=== PATIENT | male | born 1935 | race Caucasian/White ===

== ENCOUNTER 2022-05-10 00:02 | Inpatient (IN) | payer MEDICARE, BC ==
[2022-05-10 00:45] LABS: #Eosinphils 0.1 10x3/uL (0.0-0.5); #Neutrophils 8.2 10x3/uL (1.5-8.4); %Basophils 0.4 % (0.0-2.0); %Eosinophils 0.8 % (0.0-6.0); %Lymphocytes 10.3 % (18.0-47.0); %Monocytes 9.5 % (0.0-10.0); %Neutrophils 78.4 % (40.0-75.0); Hemoglobin 12.3 g/dL (13.5-17.5); Mean Corpuscular HGB CONC 34.2 g/dL (32.0-36.0); Mean Corpuscular Hemoglobin 32.3 pg (27.0-33.0); Mean Corpuscular Volume 94.5 fl (81.2-95.1); Mean Platelet Volume 10.6 fl (7.4-10.4); Platelet Count 260 10x3/uL (150-450); RBC Distribution Width 13.3 % (11.5-14.5); Red Blood Cell (RBC) Count 3.81 10x6/uL (4.32-5.72); White Blood Cell (WBC) Count 10.4 10x3/uL (3.5-10.5)
[2022-05-10 00:53] LABS: ALT (SGPT) 29 U/L (8-55); AST (SGOT) 25 U/L (5-34); Albumin 3.9 g/dL (3.4-4.8); Alkaline Phosphatase 48 U/L (40-110); Anion Gap 15 mmol/L (10-20); BUN (Urea Nitrogen) 17 mg/dL (8.4-25.7); Bilirubin, Total 0.9 mg/dL (0.2-1.2); Calc. Creatinine Clearance 0 mL/min (70-130); Calcium 9.2 mg/dL (7.8-10.44); Carbon Dioxide 23 mmol/L (23-31); Chloride 105 mmol/L (98-107); Estimated GFR 62; Globulin 2.6 g/dL (2.4-3.5); Glucose 125 mg/dL (83-110); Potassium 4.4 mmol/L (3.5-5.1); Protein, Total 6.5 g/dL (5.8-8.1); Sodium 139 mmol/L (136-145)
[2022-05-10] MEDS ORDERED: Aspirin 325 MG TAB ONE ×2 (01:19→09:46)
[2022-05-10] MEDS ORDERED: Furosemide 40 MG/4 ML VIAL ONE ×2 (01:19→14:24)
[2022-05-10 01:38] LABS: CKMB 8.5 ng/mL (0-6.6)
[2022-05-10] MEDS ORDERED: Enoxaparin Sodium 60 MG/0.6 ML SYRINGE ONE (01:54)
[2022-05-10] MEDS ORDERED: Acetaminophen 325 MG TAB PO PRN (01:59)
[2022-05-10] MEDS ORDERED: Ondansetron PF 4 MG/2 ML Vial IVP PRN (01:59)
[2022-05-10 02:29] LABS: SARS-CoV-2 NAA Rapid Test DETECTED (NotDetected)
[2022-05-10 03:57] LABS: #Eosinphils 0.1 10x3/uL (0.0-0.5); %Basophils 0.4 % (0.0-2.0); %Eosinophils 1.2 % (0.0-6.0); %Lymphocytes 8.2 % (18.0-47.0); %Monocytes 9.9 % (0.0-10.0); %Neutrophils 79.9 % (40.0-75.0); Hemoglobin 11.6 g/dL (13.5-17.5); Mean Corpuscular HGB CONC 33.8 g/dL (32.0-36.0); Mean Corpuscular Hemoglobin 31.8 pg (27.0-33.0); Mean Platelet Volume 10.8 fl (7.4-10.4); Platelet Count 266 10x3/uL (150-450); RBC Distribution Width 12.9 % (11.5-14.5); Red Blood Cell (RBC) Count 3.65 10x6/uL (4.32-5.72)
[2022-05-10 04:18] LABS: Anion Gap 15 mmol/L (10-20); BUN (Urea Nitrogen) 16 mg/dL (8.4-25.7); Calc. Creatinine Clearance 0 mL/min (70-130); Calcium 8.9 mg/dL (7.8-10.44); Carbon Dioxide 25 mmol/L (23-31); Cardiac Risk 3.6 (Less than 4.5); Chloride 103 mmol/L (98-107); Cholesterol 139 mg/dl (< 200 Desired); Estimated GFR 67; Glucose 109 mg/dL (83-110); HDL Cholesterol 39 mg/dL (>60 Neg Risk); LDL Cholesterol, Calculated 86 mg/dL; Potassium 3.9 mmol/L (3.5-5.1); Sodium 139 mmol/L (136-145); Triglycerides 68 mg/dL (Less than 150)
[2022-05-10] MEDS: Levothyroxine Sodium 75 MCG TAB PO SCH (05:52)
[2022-05-10 07:18] LABS: Critical Call Chem Troponin I RESULT DECREASING
[2022-05-10 07:35] LABS: CKMB 5.9 ng/mL (0-6.6)
[2022-05-10] MEDS: Tamsulosin HCl 0.4 MG CAP PO SCH (09:00)
[2022-05-10] MEDS: Aspirin Chewable 81 MG TAB PO SCH (09:00)
[2022-05-10] MEDS: Zinc Sulfate 220 MG CAP PO SCH (09:00)
[2022-05-10] MEDS: Sacubitril 49 MG/Valsartan 51 MG TABLET PO SCH ×2 (09:00→22:00)
[2022-05-10] MEDS: Ascorbic Acid 500 mg Chewable Tablet PO SCH (09:00)
[2022-05-10] MEDS ORDERED: Aspirin 81 mg Enteric Coated Tablet PO SCH (09:00)
[2022-05-10] MEDS ORDERED: Tamsulosin HCl 0.4 MG CAP ONE (09:49)
[2022-05-10] MEDS: Furosemide 40 MG/4 ML VIAL SLOW IVP SCH (14:40)
[2022-05-10] MEDS ORDERED: Iopamidol 370 76% 100 ML VIAL ONE (14:46)
[2022-05-10] MEDS: Carvedilol 3.125 MG TAB PO SCH (17:13)
[2022-05-10 17:31] VITALS: BMI 21.3
[2022-05-10] MEDS: Atorvastatin Calcium 40 MG TAB PO SCH (22:00)
[2022-05-11] MEDS ORDERED: Benzonatate 100 MG CAP PO PRN (02:19)
[2022-05-11 04:18] LABS: Anion Gap 16 mmol/L (10-20); BUN (Urea Nitrogen) 18 mg/dL (8.4-25.7); Calc. Creatinine Clearance 46 mL/min (70-130); Calcium 9.2 mg/dL (7.8-10.44); Carbon Dioxide 24 mmol/L (23-31); Chloride 104 mmol/L (98-107); Estimated GFR 77; Glucose 120 mg/dL (83-110); Sodium 140 mmol/L (136-145)
[2022-05-11 04:21] LABS: Potassium 4.1 mmol/L (3.5-5.1)
[2022-05-11] MEDS ORDERED: Levothyroxine Sodium 75 MCG TAB PO SCH (06:00)
[2022-05-11] MEDS: Furosemide 40 MG/4 ML VIAL SLOW IVP SCH (06:05)
[2022-05-11] MEDS: Levothyroxine Sodium 75 MCG TAB PO SCH (06:06)
[2022-05-11] MEDS: Ascorbic Acid 500 mg Chewable Tablet PO SCH (08:41)
[2022-05-11] MEDS: Zinc Sulfate 220 MG CAP PO SCH (08:41)
[2022-05-11] MEDS: Tamsulosin HCl 0.4 MG CAP PO SCH ×2 (08:41→08:42)
[2022-05-11] MEDS: Enoxaparin Sodium 40 MG/0.4 ML SYRINGE SC SCH (08:41)
[2022-05-11] MEDS: Finasteride 5 MG TAB PO SCH (08:42)
[2022-05-11] MEDS: Aspirin Chewable 81 MG TAB PO SCH (08:42)
[2022-05-11] MEDS: Carvedilol 3.125 MG TAB PO SCH ×2 (08:42→16:49)
[2022-05-11] MEDS ORDERED: OMEPRAZOLE 20 MG PO SCH (09:00)
[2022-05-11] MEDS: Sacubitril 49 MG/Valsartan 51 MG TABLET PO SCH ×2 (09:41→21:21)
[2022-05-11] MEDS: Furosemide 40 MG TAB PO SCH (13:52)
[2022-05-11] MEDS: Atorvastatin Calcium 40 MG TAB PO SCH (21:21)
[2022-05-12 04:55] LABS: Anion Gap 16 mmol/L (10-20); BUN (Urea Nitrogen) 27 mg/dL (8.4-25.7); Calc. Creatinine Clearance 39 mL/min (70-130); Carbon Dioxide 23 mmol/L (23-31); Chloride 105 mmol/L (98-107); Estimated GFR 65; Glucose 113 mg/dL (83-110); Potassium 3.6 mmol/L (3.5-5.1); Sodium 140 mmol/L (136-145)
[2022-05-12] MEDS: Levothyroxine Sodium 75 MCG TAB PO SCH (05:39)
[2022-05-12] MEDS: Ascorbic Acid 500 mg Chewable Tablet PO SCH (09:17)
[2022-05-12] MEDS: Finasteride 5 MG TAB PO SCH (09:17)
[2022-05-12] MEDS: Enoxaparin Sodium 40 MG/0.4 ML SYRINGE SC SCH (09:17)
[2022-05-12] MEDS: Furosemide 40 MG TAB PO SCH ×2 (09:17→13:59)
[2022-05-12] MEDS: Tamsulosin HCl 0.4 MG CAP PO SCH ×2 (09:18→09:19)
[2022-05-12] MEDS: Carvedilol 3.125 MG TAB PO SCH (09:18)
[2022-05-12] MEDS: Aspirin Chewable 81 MG TAB PO SCH (09:18)
[2022-05-12] MEDS: Zinc Sulfate 220 MG CAP PO SCH (09:18)
[2022-05-12] MEDS: Sacubitril 49 MG/Valsartan 51 MG TABLET PO SCH (09:19)
[2022-05-12 11:48] VITALS: BP 110/56; TEMP 98.2
== END 2022-05-12 17:21 | disposition home health service (06) | DRG 280 ==
LOC: CSHERS 00:02 → CSHERHOLD 01:59 → CSHTELE 15:57
PROVIDERS: ADMIT Family Medicine; ATTEND Internal Medicine
PROC: 8E0ZXY6 Isolation (ICD-10-PCS; principal; 2022-05-10)
DX: I11.0 Hypertensive heart disease with heart failure (principal); I21.A1 Myocardial infarction type 2; U07.1 COVID-19; I50.43 Acute on chronic combined systolic (congestive) and diastolic (congestive) heart failure; E03.9 Hypothyroidism, unspecified; N40.0 Benign prostatic hyperplasia without lower urinary tract symptoms; M19.90 Unspecified osteoarthritis, unspecified site; I44.7 Left bundle-branch block, unspecified; G60.3 Idiopathic progressive neuropathy; I35.0 Nonrheumatic aortic (valve) stenosis; I44.30 Unspecified atrioventricular block; Z90.49 Acquired absence of other specified parts of digestive tract; Z79.82 Long term (current) use of aspirin; Z79.899 Other long term (current) drug therapy
CPT/HCPCS: 36415; 71045; 71275; 80048; 80053; 80061; 82553; 83880; 84484; 85025; 93005; 93306; 94760; 96372; 96374; J1650; J1940; Q9967; U0002

== ENCOUNTER 2022-07-06 08:36 | Outpatient (CLI) | payer MEDICARE, BC | END 2022-07-06 08:37 | disposition home or self-care (01) | LOC: CSHWCC 08:36 | PROVIDERS: ATTEND Preventive Medicine Undersea and Hyperbaric Medicine | DX: I87.312 Chronic venous hypertension (idiopathic) with ulcer of left lower extremity (principal); L97.829 Non-pressure chronic ulcer of other part of left lower leg with unspecified severity; R60.0 Localized edema | CPT/HCPCS: 29581; 97139; G0463; 99203 ==

== ENCOUNTER 2022-07-22 15:18 | Outpatient (CLI) | payer MEDICARE, BC | END 2022-07-22 15:19 | disposition home or self-care (01) | LOC: CSHWCC 15:18 | PROVIDERS: ATTEND Preventive Medicine Undersea and Hyperbaric Medicine | DX: I87.312 Chronic venous hypertension (idiopathic) with ulcer of left lower extremity (principal); L97.829 Non-pressure chronic ulcer of other part of left lower leg with unspecified severity; R60.0 Localized edema | CPT/HCPCS: 11042 ==

== ENCOUNTER 2022-08-05 15:06 | Outpatient (CLI) | payer MEDICARE, BC | END 2022-08-05 15:07 | disposition home or self-care (01) | LOC: CSHWCC 15:06 | PROVIDERS: ATTEND Preventive Medicine Undersea and Hyperbaric Medicine | DX: I87.312 Chronic venous hypertension (idiopathic) with ulcer of left lower extremity (principal); L97.829 Non-pressure chronic ulcer of other part of left lower leg with unspecified severity; R60.0 Localized edema ==

== ENCOUNTER 2022-08-19 14:32 | Outpatient (CLI) | payer MEDICARE, BC | END 2022-08-19 14:33 | disposition home or self-care (01) | LOC: CSHWCC 14:32 | PROVIDERS: ATTEND Nurse Practitioner Family | DX: I87.312 Chronic venous hypertension (idiopathic) with ulcer of left lower extremity (principal); L97.829 Non-pressure chronic ulcer of other part of left lower leg with unspecified severity; R60.0 Localized edema | CPT/HCPCS: 97139; G0463; 99213 ==

== ENCOUNTER 2022-09-02 08:29 | Outpatient (CLI) | payer MEDICARE, BC | END 2022-09-02 08:30 | disposition home or self-care (01) | LOC: CSHWCC 08:29 | PROVIDERS: ATTEND Nurse Practitioner Family | DX: I87.312 Chronic venous hypertension (idiopathic) with ulcer of left lower extremity (principal); L97.829 Non-pressure chronic ulcer of other part of left lower leg with unspecified severity; R60.0 Localized edema | CPT/HCPCS: 15271; Q4196 ==

== ENCOUNTER 2022-09-16 08:44 | Outpatient (CLI) | payer MEDICARE, BC | END 2022-09-16 08:45 | disposition home or self-care (01) | LOC: CSHWCC 08:44 | PROVIDERS: ATTEND Nurse Practitioner Family | DX: I87.312 Chronic venous hypertension (idiopathic) with ulcer of left lower extremity (principal); L97.829 Non-pressure chronic ulcer of other part of left lower leg with unspecified severity; R60.0 Localized edema ==

== ENCOUNTER 2022-09-22 15:19 | Outpatient (CLI) | payer MEDICARE, BC | END 2022-09-22 15:20 | disposition home or self-care (01) | LOC: CSHWCC 15:19 | PROVIDERS: ATTEND Nurse Practitioner Family | DX: I87.312 Chronic venous hypertension (idiopathic) with ulcer of left lower extremity (principal); L97.829 Non-pressure chronic ulcer of other part of left lower leg with unspecified severity; R60.0 Localized edema | CPT/HCPCS: 15271; 29581; Q4196 ==

== ENCOUNTER 2022-10-14 11:01 | Outpatient (CLI) | payer MEDICARE, BC | END 2022-10-14 11:02 | disposition home or self-care (01) | LOC: CSHWCC 11:01 | PROVIDERS: ATTEND Nurse Practitioner Family | DX: I87.312 Chronic venous hypertension (idiopathic) with ulcer of left lower extremity (principal); L97.829 Non-pressure chronic ulcer of other part of left lower leg with unspecified severity; R60.0 Localized edema | CPT/HCPCS: 29581 ==

== ENCOUNTER 2022-10-21 15:15 | Outpatient (CLI) | payer MEDICARE, BC | END 2022-10-21 15:16 | disposition home or self-care (01) | LOC: CSHWCC 15:15 | PROVIDERS: ATTEND Nurse Practitioner Family | DX: I87.312 Chronic venous hypertension (idiopathic) with ulcer of left lower extremity (principal); L97.829 Non-pressure chronic ulcer of other part of left lower leg with unspecified severity; R60.0 Localized edema ==

== ENCOUNTER 2022-11-05 12:50 | Outpatient (CLI) | payer MEDICARE, BC | END 2022-11-05 12:51 | disposition home or self-care (01) | LOC: CSHWCC 12:50 | PROVIDERS: ATTEND Nurse Practitioner Family | DX: I87.312 Chronic venous hypertension (idiopathic) with ulcer of left lower extremity (principal); L97.829 Non-pressure chronic ulcer of other part of left lower leg with unspecified severity; R60.0 Localized edema ==

== ENCOUNTER 2022-12-02 12:47 | Outpatient (CLI) | payer MEDICARE, BC | END 2022-12-02 12:48 | disposition home or self-care (01) | LOC: CSHWCC 12:47 | PROVIDERS: ATTEND Nurse Practitioner Family | DX: I87.312 Chronic venous hypertension (idiopathic) with ulcer of left lower extremity (principal); L97.829 Non-pressure chronic ulcer of other part of left lower leg with unspecified severity; R60.0 Localized edema ==

== ENCOUNTER 2022-12-28 13:11 | Outpatient (CLI) | payer MEDICARE, BC | END 2022-12-28 13:12 | disposition home or self-care (01) | LOC: CSHWCC 13:11 | PROVIDERS: ATTEND Nurse Practitioner Family | DX: I87.312 Chronic venous hypertension (idiopathic) with ulcer of left lower extremity (principal); L97.829 Non-pressure chronic ulcer of other part of left lower leg with unspecified severity; R60.0 Localized edema | CPT/HCPCS: 99213; G0463 ==

== ENCOUNTER 2023-02-02 13:36 | Outpatient (CLI) | payer MEDICARE, BC | END 2023-02-02 13:37 | disposition home or self-care (01) | LOC: CSHWCC 13:36 | PROVIDERS: ATTEND Nurse Practitioner Family | DX: I87.312 Chronic venous hypertension (idiopathic) with ulcer of left lower extremity (principal); L97.829 Non-pressure chronic ulcer of other part of left lower leg with unspecified severity; R60.0 Localized edema ==

== ENCOUNTER 2023-03-02 13:02 | Outpatient (CLI) | payer MEDICARE, BC | END 2023-03-02 13:03 | disposition home or self-care (01) | LOC: CSHWCC 13:02 | PROVIDERS: ATTEND Nurse Practitioner Family | DX: I87.312 Chronic venous hypertension (idiopathic) with ulcer of left lower extremity (principal); L97.829 Non-pressure chronic ulcer of other part of left lower leg with unspecified severity; R60.0 Localized edema | CPT/HCPCS: 97139; G0463; 99213 ==

== ENCOUNTER 2023-04-01 13:07 | Outpatient (CLI) | payer MEDICARE, BC | END 2023-04-01 13:08 | disposition home or self-care (01) | LOC: CSHWCC 13:07 | PROVIDERS: ATTEND Nurse Practitioner Family | DX: I87.312 Chronic venous hypertension (idiopathic) with ulcer of left lower extremity (principal); L97.829 Non-pressure chronic ulcer of other part of left lower leg with unspecified severity; R60.0 Localized edema | CPT/HCPCS: 97139; G0463; 99213 ==

== ENCOUNTER 2023-05-06 13:07 | Outpatient (CLI) | payer MEDICARE, BC | END 2023-05-06 13:08 | disposition home or self-care (01) | LOC: CSHWCC 13:07 | PROVIDERS: ATTEND Nurse Practitioner Family | DX: I87.312 Chronic venous hypertension (idiopathic) with ulcer of left lower extremity (principal); L97.829 Non-pressure chronic ulcer of other part of left lower leg with unspecified severity | CPT/HCPCS: 97139; G0463; 99212 ==

== ENCOUNTER 2023-06-03 13:02 | Outpatient (CLI) | payer MEDICARE, BC | END 2023-06-03 13:03 | disposition home or self-care (01) | LOC: CSHWCC 13:02 | PROVIDERS: ATTEND Nurse Practitioner Family | DX: I87.312 Chronic venous hypertension (idiopathic) with ulcer of left lower extremity (principal); L97.829 Non-pressure chronic ulcer of other part of left lower leg with unspecified severity | CPT/HCPCS: 97139; G0463; 99212 ==

== ENCOUNTER 2023-07-01 13:03 | Outpatient (CLI) | payer MEDICARE, BC | END 2023-07-01 13:04 | disposition home or self-care (01) | LOC: CSHWCC 13:03 | PROVIDERS: ATTEND Nurse Practitioner Family | DX: I87.312 Chronic venous hypertension (idiopathic) with ulcer of left lower extremity (principal); L97.829 Non-pressure chronic ulcer of other part of left lower leg with unspecified severity | CPT/HCPCS: 97139; G0463; 99212 ==